=== PATIENT | male | born 1985 | race American Indian/Alaskan Native ===

== ENCOUNTER 2018-11-11 16:24 | Emergency (ER) | payer OTHER ==
[2018-11-11 16:55] VITALS: BP 108/78
--- NOTE | 2018-11-11 16:56 | Emergency Department Report ---
Chief Complaint: Chest Pain Stated Complaint: CHEST PAIN Time Seen by Provider: 11/11/18 16:54 - HPI History of Present Illness: pt presents with substernal CP that began last night describes the pain as sharp no SOB, no pleuritic CP no N/V/D no diaphoresis no LE edema no PMHx no personal cardiac hx grandmother had CABG non smoker non drinker no drug use MSE screening note: Focused history performed. Due to findings the following was ordered: EKG, CXR ED Disposition for MSE Condition: Stable
--- NOTE | 2018-11-11 18:30 | XRay Report ---
PROCEDURE: XR CHEST ROUTINE 2V HISTORY: CP FINDINGS: Frontal and lateral views of the chest were acquired and demonstrate the heart is normal in size. The lungs appear clear. The pleura and mediastinum are within normal limits. IMPRESSION: No active disease in the chest This document is electronically signed by Dakota Ash MD., November 11 2018 06:28:37 PM ET
== END 2018-11-11 21:00 | disposition left against medical advice (07) ==
LOC: ED 16:24
DX: R07.89 Other chest pain (principal); Z53.21 Procedure and treatment not carried out due to patient leaving prior to being seen by health care provider
CPT/HCPCS: 71046; 93005; 93010